=== PATIENT | female | born 1940 | race Caucasian/White ===

== ENCOUNTER 2017-08-10 18:26 | Emergency (ER) | payer MEDICARE, BC ==
[~2017-08-10] VITALS: Ht 170.2 cm; Wt 62.1 kg
[2017-08-10] MEDS ORDERED: SIMVASTATIN 10 MG TABS (18:43)
[2017-08-10] MEDS ORDERED: LEVOTHYROXINE SODIUM 50 MCG (18:43)
[2017-08-10] MEDS ORDERED: LOSARTAN POTASSIUM 100 MG TAB (18:43)
[2017-08-10] MEDS ORDERED: SODIUM BICARBONATE 4.2 % (NEUT) 5 ML VIAL TP ONE (19:00)
[2017-08-10] MEDS ORDERED: LIDOCAINE HCL 2% 20 ML VIAL IJ ONE (19:00)
[2017-08-10] MEDS ORDERED: LET TOPICAL SOLUTION 8 ML UDC TOP ONE (19:00)
--- NOTE | 2017-08-10 19:06 | NUR ---
PT IS IN ROOM #2A. DR OMALLEY EVALUATED THE PT.
[2017-08-10] MEDS ORDERED: LIDOCAINE HCL 2% 20 ML VIAL ONE (19:13)
[2017-08-10] MEDS ORDERED: LET TOPICAL SOLUTION 8 ML UDC ONE (19:14)
--- NOTE | 2017-08-10 19:24 | NUR ---
DR. OMALLEY AT BEDSIDE PERFOEMING PROCEDURE ON RIGHT ELBOW.
--- NOTE | 2017-08-10 19:43 | NUR ---
Patient discharged to home in stable conditon. Written and verbal after care instructions given. Patient verbalizes understanding of instructions. PATIENT LEFT WITH STABLE GAIT.
[2017-08-10 19:44] VITALS: BP 137/64
[2017-08-10] MEDS ORDERED: NEOMY/BACITRA/POLYMYXIN B OINT UD PACKET TP ONE ×2 (19:45→19:48)
== END 2017-08-10 19:45 | disposition home or self-care (01) ==
LOC: ER 18:27
DX: L72.0 Epidermal cyst (principal); I10 Essential (primary) hypertension; E03.9 Hypothyroidism, unspecified; Z88.2 Allergy status to sulfonamides; Z88.6 Allergy status to analgesic agent; Z85.3 Personal history of malignant neoplasm of breast; Z90.49 Acquired absence of other specified parts of digestive tract
CPT/HCPCS: 10060; 99283; A4663; J3490